=== PATIENT | female | born 1955 | race Caucasian/White ===

== ENCOUNTER 2018-10-01 22:31 | Emergency (ER) | payer MEDICAID ==
[~2018-10-01] VITALS: Ht 165.1 cm; Wt 95.0 kg
[~2018-10-01 22:31] MED LIST: HCTZ25T PO; IBUP-1986 PO; LISI10TA4 PO; NO HOME MEDS
[2018-10-01 22:42] VITALS: BP 202/98
[2018-10-01] MEDS ORDERED: SULF1TAB49 PO (22:53)
[2018-10-01] MEDS ORDERED: NAPR-56 PO (22:53)
[2018-10-01] MEDS ORDERED: LIDOcaine 1% w/epiNEPHrine 1:200,000 30ml vial IM ONE (22:55)
[2018-10-01] MEDS ORDERED: TETanus/Pertussis (Acell)/Diphther VAC/PF (Tdap-Adult) 0.5ml syringe IM ONE (22:55)
[2018-10-01] MEDS ORDERED: sulfamethoxazole/trimethoprim DS (800/160mg) tablet PO ONE (23:00)
[2018-10-01] MEDS ORDERED: naproxen 500mg tablet PO ONE (23:00)
[2018-10-01] MEDS ORDERED: HYDROcodone/acetaminophen 5mg/325mg tablet PO ONE (23:00)
--- NOTE | 2018-10-01 23:15 | NUR ---
DRESSING APPLIED TO I&D SITE, ELADIA WELL.
== END 2018-10-01 23:16 | disposition home or self-care (01) ==
LOC: ER 22:36
DX: L72.3 Sebaceous cyst (principal); L03.312 Cellulitis of back [any part except buttock and flank]; I10 Essential (primary) hypertension; Z79.899 Other long term (current) drug therapy; Z60.2 Problems related to living alone; Z56.0 Unemployment, unspecified
CPT/HCPCS: 10060; 90471; 90715; 99284; J3490

== ENCOUNTER 2020-10-17 14:01 | Emergency (ER) | payer MEDICAID ==
[~2020-10-17] VITALS: Ht 165.1 cm; Wt 91.7 kg
[~2020-10-17 14:01] MED LIST changes: +LISI10TA27 PO; -LISI10TA4 PO
--- NOTE | 2020-10-17 14:55 | NUR ---
LEFT CALF: 44 CM RIGHT CALF: 42 CM
--- NOTE | 2020-10-17 15:07 | NUR ---
PT ABLE TO DIFFERENTIATE ALL SENSATIONS OF ARMS & LEGS. YELENA RUSSELL INFORMED WHO INDICATE NO LABS WILL BE DONE AT THIS TIME PT IS ASYMPTOMATIC AND HAS PCP APPT IN NEAR FUTURE.
[2020-10-17 15:22] VITALS: BP 157/93
== END 2020-10-17 15:24 | disposition home or self-care (01) ==
LOC: ER 14:01
DX: R20.2 Paresthesia of skin (principal); R42 Dizziness and giddiness; R20.0 Anesthesia of skin; I10 Essential (primary) hypertension; Z60.2 Problems related to living alone; Z56.0 Unemployment, unspecified; Z79.899 Other long term (current) drug therapy
CPT/HCPCS: 93005; 99283

== ENCOUNTER 2024-09-20 16:10 | Emergency (ER) | payer MEDICAID ==
[~2024-09-20] VITALS: Ht 172.7 cm; Wt 73.1 kg
[2024-09-20 16:29] VITALS: BP 231/122; PULSE 110; RESP 18; TEMP 97.8; O2SAT 98
[2024-09-20 18:09] LABS: BASOPHILS % (AUTO) 0.5 % (0-1); EOSINOPHILS # (AUTO) 0.3 X10'3 (0-0.9); EOSINOPHILS % (AUTO) 2.6 % (0-6); HEMATOCRIT 44.6 % (35.0-45.0); HEMOGLOBIN 14.9 g/dl (12.0-16.0); LYMPHOCYTES # (AUTO) 2.5 X10'3 (1.1-4.8); LYMPHOCYTES % (AUTO) 24.5 % (21-51); MEAN CORPUSCULAR HEMOGLOBIN 31.8 PG (27.0-31.0); MEAN CORPUSCULAR HGB CONC 33.3 g/dL (33.0-36.5); MEAN CORPUSCULAR VOLUME 95.5 FL (78-98); MEAN PLATELET VOLUME 7.6 FL (7.4-10.4); MONOCYTES # (AUTO) 0.6 X10'3 (0-0.9); MONOCYTES % (AUTO) 6.1 % (2-12); NEUTROPHILS # (AUTO) 6.8 X10'3 (1.8-7.7); NEUTROPHILS % (AUTO) 66.3 % (42-75); PLATELET COUNT 248 X10'3 (140-440); RED BLOOD COUNT 4.67 X10'6 (4.20-5.60); RED CELL DISTRIBUTION WIDTH 14.4 % (11.5-14.5); WHITE BLOOD COUNT 10.2 X10'3 (4.5-11.0)
[2024-09-20 18:25] LABS: ALANINE AMINOTRANSFERASE 20 U/L (12-78); ALBUMIN 4.2 G/DL (3.4-5.0); ALBUMIN/GLOBULIN RATIO 0.9 (1.1-1.5); ALKALINE PHOSPHATASE 96 IU/L (46-116); ANION GAP 12 (8-16); ASPARTATE AMINO TRANSFERASE 17 U/L (10-37); BILIRUBIN,TOTAL 0.3 MG/DL (0.1-1.0); BLOOD UREA NITROGEN 44 MG/DL (7-18); BUN/CREATININE RATIO 19.6 (10.0-20.0); CALCIUM 9.7 MG/DL (8.5-10.1); CHLORIDE 106 MMOL/L (99-107); CREATININE 2.24 MG/DL (0.40-0.90); GLUCOSE 95 MG/DL (70-104); LIPASE 62 U/L (16-77); POTASSIUM 4.3 MMOL/L (3.5-5.1); SODIUM 140 MMOL/L (135-145); TOTAL CARBON DIOXIDE 21.7 MMOL/L (24-32); TOTAL PROTEIN 8.9 G/DL (6.4-8.2); eCRCL 25 ML/MIN; eGFR 22 ML/MIN
== END 2024-09-20 20:41 | disposition left against medical advice (07) ==
LOC: ER 16:11
DX: R10.9 Unspecified abdominal pain (principal); Z53.21 Procedure and treatment not carried out due to patient leaving prior to being seen by health care provider
CPT/HCPCS: 36415; 80053; 83690; 85025; A4615

== ENCOUNTER 2025-07-20 18:18 | Emergency (ER) | payer MEDICAID ==
[~2025-07-20] VITALS: Ht 165.1 cm; Wt 81.8 kg
[~2025-07-20 18:18] MED LIST changes: +ATOR10TA70 PO; +CEFD300C3 PO; -HCTZ25T PO; -IBUP-1986 PO; +LACT1CAP65 PO; -LISI10TA27 PO; +LISI20TA28 PO; -NO HOME MEDS
[2025-07-20 18:26] VITALS: BP 181/100; PULSE 74; RESP 15; TEMP 97.6; O2SAT 98
--- NOTE | 2025-07-20 21:45 | Physician Documentation ---
History of Present Illness ~ Chief Complaint: Eye Discharge Stated Complaint: EYE PAIN Time Seen by MD: 19:09 Primary Medical Doctor: BAIRON ARSHAD HUNTER Is a 62-year-old female that presents to the emergency department for evaluation of slight watering and drainage from left eye. Patient reports that she has had congestion and rhinorrhea today and developed a little bit of conjunctival irritation watering in her left eye approximately 2 hours ago. Patient denies fever chills nausea vomiting diarrhea at this time. No other symptoms reported at this time. Medication Reconciliation Allergies: Coded Allergies: No Known Allergies (Unverified , 07/20/25) Scheduled Atorvastatin Calcium (Atorvastatin Calcium), 1 TAB PO DAILY, (Reported) Cefdinir (Cefdinir), 1 CAP PO Q12H Lactobacillus Acidophilus (Probiotic), 1 EACH PO DAILY Lisinopril (Lisinopril), 10 TAB PO DAILY, (Reported) Past Medical History Past Medical History: Hypertension Past Surgical History: noncontributory Alcohol Use: None Drug Use: none Lives with: Alone Lives In: Home Occupation: unemployed Physical Exam Vital Signs: Temperature: 97.6, Source: Temporal, Heart Rate: 74, Respiratory Rate: 15, BP: 181/100, Pulse Oximetry: 98, Weight: 81.800 Progress Results/Orders Results/Orders Vital Signs 07/20/25 18:26 Temp 97.6 Pulse 74 Resp 15 B/P (MAP) 181/100 Pulse Ox 98 Departure Disposition: 07 LEFT AWOL/ELOPED Referrals: NO PRIMARY CARE PROVIDER (PCP) PERI CAICEDO Jul 20, 2025 21:45
== END 2025-07-20 21:44 | disposition left against medical advice (07) ==
LOC: ER 18:18
DX: H57.12 Ocular pain, left eye (principal); I10 Essential (primary) hypertension
CPT/HCPCS: 99281; 99282